=== PATIENT | male | born 1965 | race Caucasian/White ===

== ENCOUNTER 2016-12-15 03:22 | Emergency (ER) | payer MEDICARE ==
[2016-12-15 04:04] LABS: BASO % 0.2 % (0.2-1.2); EOS # 0.2 10_X3_uL (0.0-0.5); EOS % 1.6 % (0.8-7.0); GRAN # 4.6 10_X3_uL (1.8-5.4); HEMATOCRIT 41.9 % (40-51); HEMOGLOBIN 14.8 g/dL (13.7-17.5); LYMPH # 3.7 10_X3_uL (1.3-3.6); LYMPH % 37.9 % (21.8-53.1); MEAN CORPUSCULAR HEMOGLOBIN 31.5 pg (27.0-33.0); MEAN CORPUSCULAR HGB CONC 35.3 g/dL (32.0-36.0); MEAN CORPUSCULAR VOLUME 89.1 fL (79-92); MEAN PLATELET VOLUME 10.8 fl (7.5-11.5); MONO # 1.3 10_X3_uL (0.3-0.8); MONO % 13.3 % (5.3-12.2); PLATELET COUNT 223 x10_3/uL (163-337); WHITE BLOOD COUNT 9.8 x10_3/uL (4.2-9.1)
[2016-12-15 04:11] LABS: URINE BILIRUBIN NEGATIVE (NEGATIVE); URINE BLOOD TRACE (NEGATIVE); URINE GLUCOSE (UA) NORMAL (NORMAL); URINE KETONE NEGATIVE (NEGATIVE); URINE LEUKOCYTE ESTERASE NEGATIVE (NEGATIVE); URINE NITRATE NEGATIVE (NEGATIVE); URINE PROTEIN NEGATIVE (NEGATIVE); UROBILINOGEN NORMAL mg/dL (<1.0)
[2016-12-15 04:23] LABS: ALBUMIN 3.9 gm/dL (3.4-5.0); ALKALINE PHOSPHATASE 90 U/L (50-136); ALT/SGPT 8 U/L (7.53-40.17); AMYLASE 38 U/L (15.62-74.58); AST/SGOT 11 U/L (6.66-35.34); BILIRUBIN,TOTAL 0.26 mg/dL (0.0-1.0); CALCIUM 8.2 mg/dL (8.7-10.7); CARBON DIOXIDE 23 mmol/L (21-32); CREATINE KINASE 124 U/L (35-232); CREATININE 0.9 mg/dL (0.6-1.3); GLUCOSE,RANDOM 115 mg/dL (70-99); LIPASE 42 U/L (6.75-60.75); SODIUM 142 mmol/L (136-145); TOTAL PROTEIN 6.9 gm/dL (6.4-8.2)
[2016-12-15 04:25] LABS: BLOOD UREA NITROGEN 4 mg/dL (7-18)
[2016-12-15 04:29] LABS: URINE RBC 0-5 /[HPF] (0-2)
== END 2016-12-15 05:34 | disposition home or self-care (01) ==
LOC: ER 03:22
PROVIDERS: Emergency Medicine
DX: R10.13 Epigastric pain (principal); R11.0 Nausea; R63.0 Anorexia; Z98.890 Other specified postprocedural states; F17.200 Nicotine dependence, unspecified, uncomplicated; Z82.49 Family history of ischemic heart disease and other diseases of the circulatory system; Z79.899 Other long term (current) drug therapy
CPT/HCPCS: 36415; 74150; 80053; 80307; 81001; 82150; 82550; 82553; 83690; 85025; 93005; 96372; 99284; 99284-25